=== PATIENT | female | born 1995 | race African-American/Black ===

== ENCOUNTER 2021-08-09 19:39 | Emergency (ER) | payer SELFPAY ==
[2021-08-09 20:41] LABS: Absolute Lymphocytes (CBC) 0.2 K/uL (0.7-4.9); Hematocrit 26.6 % (36.0-45.0); Lymphocytes % 14.2 % (15.3-44.8); MPV 9.6 fL (7.6-11.3); RBC Red Blood Cell Count 3.93 M/uL (3.86-4.86)
[2021-08-09] MEDS ORDERED: FAMOTIDINE 20 MG/2 ML VIAL IV ONE (20:58)
[2021-08-09] MEDS ORDERED: NA CHLORIDE 0.9% 1,000 ML ONE (20:58)
[2021-08-09] MEDS ORDERED: MORPHINE 4 MG/ML SYR ONE ×2 (20:58→23:07)
[2021-08-09] MEDS ORDERED: ONDANSETRON 4 MG/2 ML VIAL ONE (20:58)
[2021-08-09 21:02] LABS: ALT/SGPT 98 U/L (12-78); AST/SGOT 69 U/L (15-37); Albumin 3.4 g/dL (3.4-5.0); Alkaline Phosphatase 320 U/L (45-117); BUN Blood Urea Nitrogen 11 mg/dL (7-18); Bicarbonate 26 mmol/L (21-32); Bilirubin Direct 0.4 mg/dL (0-0.2); Bilirubin Total 0.7 mg/dL (0.2-1.0); Glucose Level 114 mg/dL (74-106); Lipase 220 U/L (73-393); Potassium 3.8 mmol/L (3.5-5.1); Sodium Level 142 mmol/L (136-145)
[2021-08-09 21:33] LABS: Anisocytosis 1+; Blood Morphology Comment NOTED (NOT SEEN); Hypochromasia 1+; Platelet Estimate DECR; Platelets, Giant PRESENT
--- NOTE | 2021-08-09 21:36 | RAD REPORT ---
EXAM DESCRIPTION: CTAbdomen Pelvis W Contrast - 08/09/2021 9:26 pm CLINICAL HISTORY: Abdominal pain. ABD PAIN COMPARISON: No comparisons TECHNIQUE: Biphasic CT imaging of the abdomen and pelvis was performed with 100 ml non-ionic IV cont rast. All CT scans are performed using dose optimization technique as appropriate and may include automated exposure control or mA/KV adjustment according to patient size. FINDINGS: The lung bases are clear. A moderate liver cirrhosis pattern is seen. Significant splenomegaly is noted. The portal venous syst em is enlarged compatible with portal venous hypertension. The pancreas, adrenal glands and kidneys are within normal limits. No bowel obstruction, free air, free fluid or abscess. Moderate stool is present throughout the colon . The appendix is normal. No evidence of significant lymphadenopathy. No suspicious bony findings. IMPRESSION: Moderate liver cirrhosis, splenomegaly and portal hypertension is noted.
[2021-08-09 23:01] LABS: Urine Blood Negative (Negative); Urine Glucose Negative (Negative); Urine Protein Negative (Negative)
[2021-08-09 23:18] LABS: Urine Bacteria 20-50 /HPF (<20); Urine Mucus 1+ /HPF (NONE SEEN); Urine RBC <5 /HPF (NONE SEEN)
--- NOTE | 2021-08-09 23:19 | EDPHYS ---
Physician Documentation [facility] Name: Brent Escalante Age: 25 yrs Sex: Female : 1995 Arrival Date: 08/09/2021 Time: 19:41 Bed 30 Private MD: ED Physician Michael Smith HPI: 08/09 20:20 This 25 yrs old Black Female presents to ER via Ambulatory with complaints of SEVERE cp ABDOMINAL PAIN, ABDOMINAL AREA HARD, Decreased Appetite. 20:20 The patient presents with abdominal pain that is diffuse, abdominal distention that is cp diffuse. 20:20 Onset: The symptoms/episode began/occurred 3 day(s) ago. The symptoms do not radiate. cp Associated signs and symptoms: Pertinent positives: anorexia, diarrhea, nausea, Pertinent negatives: blood in stools, dysuria, fever, active vomiting. The symptoms are described as constant. Severity of pain: in the emergency department the pain is unchanged despite home interventions. Patient reports history of autoimmune hepatitis and varices. 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 - Social history:: Smoking status: Patient denies any tobacco usage or history of. Patient/guardian denies using alcohol, street drugs. ROS: 20:25 Constitutional: Negative for body aches, chills, fever, poor PO intake. cp 20:25 Eyes: Negative for injury, pain, redness, and discharge. cp 20:25 ENT: Negative for ear pain, sore throat, difficulty swallowing, difficulty handling secretions. 20:25 Cardiovascular: Negative for chest pain, palpitations. 20:25 Respiratory: Negative for cough, shortness of breath, wheezing. 20:25 Abdomen/GI: Positive for abdominal pain, nausea, diarrhea, abdominal distension, anorexia, Negative for black/tarry stool, rectal bleeding. 20:25 Back: Negative for radiated pain. 20:25 : Negative for urinary symptoms. 20:25 Neuro: Negative for altered mental status, headache, weakness. 20:25 All other systems are negative. Exam: 20:30 Constitutional: The patient appears in no acute distress, alert, awake, non-toxic, well cp developed, well nourished, uncomfortable. 20:30 Head/Face: Normocephalic, atraumatic. cp 20:30 Eyes: Periorbital structures: appear normal, Conjunctiva: normal, no exudate, no injection, Sclera: no appreciated abnormality, Lids and lashes: appear normal, bilaterally. 20:30 ENT: External ear(s): are unremarkable, Nose: is normal, Mouth: Lips: moist, Oral mucosa: moist, Posterior pharynx: Airway: no evidence of obstruction, patent. 20:30 Chest/axilla: Inspection: normal, Palpation: is normal, no crepitus, no tenderness. 20:30 Cardiovascular: Rate: normal, Rhythm: regular. 20:30 Respiratory: the patient does not display signs of respiratory distress, Respirations: normal, no use of accessory muscles, no retractions, labored breathing, is not present, Breath sounds: are clear throughout, no decreased breath sounds, no stridor, no wheezing. 20:30 Abdomen/GI: Inspection: distension, that is mild, Bowel sounds: active, all quadrants, Palpation: soft, in all quadrants, severe abdominal tenderness, in all quadrants, voluntary guarding, is elicited in all quadrants. 20:30 Back: CVA tenderness, is absent. 20:30 Neuro: Orientation: to person, place \T\ time. Mentation: is normal. 23:00 : Rectal exam: Rectal tone: normal, Stool: brown, Guaiac testing: results were cp negative for occult blood. Vital Signs: 19:59 BP 142 / 87; Pulse 94; Resp 20; Temp 98.2(O); Pulse Ox 100% on R/A; Weight 56.7 kg (R); sj1 Height 5 ft. 7 in. (170.18 cm); Pain 10/10; 21:00 BP 141 / 89; Pulse 75; Resp 20; Pulse Ox 100% on R/A; ld1 22:42 BP 134 / 79; Pulse 70; Resp 18; Pulse Ox 100% on R/A; ld1 23:00 BP 135 / 80; Pulse 70; Resp 18; Pulse Ox 100% on R/A; ld1 23:50 BP 100 / 69; Pulse 64; Resp 16; Temp 98.6; Pulse Ox 100% ; ld1 19:59 Body Mass Index 19.58 (56.70 kg, 170.18 cm) sj1 MDM: 20:10 Patient medically screened. cp 21:00 Differential diagnosis: diverticulitis, gastritis, pancreatitis, Peptic Ulcer Disease, cp Perf. Duodenal Ulcer, Perf. Gastric Ulcer, Ureterolithiasis, urinary tract infection. 23:21 Data reviewed: vital signs, nurses notes, lab test result(s), radiologic studies, CT cp scan, and as a result, I will discharge patient. 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 Response to treatment: the patient's symptoms have markedly improved after treatment, VSS. Nausea and pain markedly improved. Patient appears non-toxic. Will discharge to home for continued monitoring. 08/09 20:14 Order name: Basic Metabolic Panel; Complete Time: 21:05 cp 08/09 20:14 Order name: CBC with Diff; Complete Time: 21:34 cp 08/09 21:01 Interpretation: Normal except: WBC 1.20; HGB 8.3; HCT 26.6; MCV 67.7; MCH 21.1; MCHC cp 31.1; PLT 26; RDW 20.1; GABE% 74.6; LYM% 14.2; NEUT A 0.9; LYMA 0.2. 08/09 20:14 Order name: Hepatic Function; Complete Time: 21:05 cp 08/09 23:16 Interpretation: Normal except: AST 69; ALT 98; ALK 320; BILID 0.4; GLOB 3.6; A/G 0.9. cp 08/09 20:14 Order name: Lipase; Complete Time: 21:05 cp 08/09 20:15 Order name: Urine Microscopic Only; Complete Time: 23:21 cp 08/09 23:21 Interpretation: Normal except: UBACT 20-50; SQEPI 20-50. cp 08/09 21:32 Order name: Manual Differential; Complete Time: 21:34 EDMS 08/09 20:15 Order name: CT Abd/Pelvis - IV Contrast Only; Complete Time: 21:41 cp 08/09 23:01 Order name: Urine Dipstick-Ancillary; Complete Time: 23:16 EDMS 08/09 23:03 Order name: Urine --Ancillary (enter results); Complete Time: 23:16 tt3 08/09 20:14 Order name: IV Saline Lock; Complete Time: 21:02 cp 08/09 20:14 Order name: Labs collected and sent; Complete Time: 21:02 cp 08/09 20:15 Order name: Urine Dipstick-Ancillary (obtain specimen); Complete Time: 23:09 cp 08/09 20:15 Order name: Urine Test (obtain specimen); Complete Time: 23:09 cp 08/09 23:16 Order name: PO challenge; Complete Time: 23:22 cp Administered Medications: 08/10 00:40 Discontinued: NS 0.9% 1000 ml IV at 1 bolus Per protocol; 1000 mL bolus ld1 08/09 20:37 Drug: morphine 4 mg Route: IVP; Site: left antecubital; ld1 21:45 Follow up: Response: No adverse reaction; Pain is unchanged, physician notified ld1 20:37 Drug: Zofran (Ondansetron) 4 mg Route: IVP; Site: left antecubital; ld1 23:50 Follow up: Response: No adverse reaction ld1 20:37 Drug: Pepcid (famotidine) 20 mg Route: IVP; Site: left antecubital; ld1 23:50 Follow up: Response: No adverse reaction; Pain is decreased ld1 20:37 Drug: NS 0.9% 1000 ml Route: IV; Rate: 1 bolus; Site: left antecubital; ld1 23:50 Follow up: IV Intake: 1000ml ld1 22:40 Drug: morphine 4 mg Route: IVP; Site: left antecubital; ld1 23:50 Follow up: Urine output 400 ml; Response: No adverse reaction; Pain is decreased ld1 Disposition Summary: 08/09/21 23:19 Discharge Ordered Location: Home cp Problem: new cp Symptoms: have improved cp Condition: Stable cp Diagnosis - Abdominal pain, unspecified cp Followup: cp - With: Private Physician - When: 1 - 2 days - Reason: Recheck today's complaints Discharge Instructions: - Discharge Summary Sheet cp - Abdominal Pain, Adult cp Forms: - Medication Reconciliation Form cp - Thank You Letter cp - Antibiotic Education cp - Prescription Opioid Use cp Prescriptions: - Zofran 4 mg Oral Tablet - take 1 tablet by ORAL route every 12 hours As needed; 20 tablet; Refills: 0, cp Product Selection Permitted - dicyclomine 20 mg Oral Tablet - take 1 tablet by ORAL route 4 times per day; 30 tablet; Refills: 0, Product cp Selection Permitted Addendum: 08/15/2021 21:51 Co-signature as Attending Physician, Michael Smith MD I agree with the assessment and r n plan of care. Attestation: The patient's history, exam findings, diagnostics, and a summary of any interventions or procedures was reviewed in detail with Manuel BEEBE. Signatures: Dispatcher [employer] EDMS Michael Smith MD MD rn Jeremie Adames, LOGGING TRACTOR OPERATOR SWAMP-C LOGGING TRACTOR OPERATOR SWAMP-Cla1 Manuel Conklin PA PA cp Dibbern, Lauren, RN RN ld1 Nyla Salvador RN RN sj1
--- NOTE | 2021-08-09 23:19 | ER ---
Nurse's Notes [facility] Name: Brent Escalante Age: 25 yrs Sex: Female : 1995 Arrival Date: 08/09/2021 Time: 19:41 Bed 30 Private MD: Diagnosis: Abdominal pain, unspecified Presentation: 08/09 19:59 Chief complaint: Patient states: Generalized abdominal pain, diarrhea and nausea x 3 sj1 days. Hx of Hep C, Varices. Denies vomiting. Coronavirus screen: Vaccine status: Patient reports being unvaccinated. Ebola Screen: Patient negative for fever greater than or equal to 101.5 degrees Fahrenheit, and additional compatible Ebola Virus Disease symptoms Patient denies exposure to infectious person. Patient denies travel to an Ebola-affected area in the 21 days before illness onset. No symptoms or risks identified at this time. Initial Sepsis Screen: Does the patient meet any 2 criteria? No. Patient's initial sepsis screen is negative. Does the patient have a suspected source of infection? No. Patient's initial sepsis screen is negative. Risk Assessment: Do you want to hurt yourself or someone else? Patient reports no desire to harm self or others. Onset of symptoms was August 06, 2021. 19:59 Method Of Arrival: Ambulatory sj1 19:59 Acuity: PRABHAKAR 2 sj1 Triage Assessment: 20:02 General: Appears uncomfortable, well groomed, Behavior is crying. Pain: Complains of sj1 pain in abdomen. GI: Reports diarrhea, nausea. 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 - Social history:: Smoking status: Patient denies any tobacco usage or history of. Patient/guardian denies using alcohol, street drugs. Screenin:03 Abuse screen: Denies threats or abuse. Denies injuries from another. Nutritional sj1 screening: No deficits noted. Tuberculosis screening: No symptoms or risk factors identified. Fall Risk None identified. Assessment: 21:00 General: Appears uncomfortable, Behavior is cooperative, anxious. Pain: Complains of ld1 pain in abdomen Pain currently is 10 out of 10 on a pain scale. Quality of pain is described as aching, sharp, Pain began 2-3 days ago. c/o bilateral upper quad abd pain x 3 days; reports diarrhea 2 days ago with no stools since; reports h/o esophageal varices; denies any vomiting. 21:00 Neuro: No deficits noted. Level of Consciousness is awake, alert, obeys commands, ld1 Oriented to person, place, time, situation. Cardiovascular: No deficits noted. Rhythm is sinus rhythm. Respiratory: No deficits noted. Airway is patent Breath sounds are clear bilaterally. GI: Abdomen is flat, non-distended, tender luther. upper quads with + BS's x4 quads. Reports upper abdominal pain. : No signs and/or symptoms were reported regarding the genitourinary system. EENT: No deficits noted. No signs and/or symptoms were reported regarding the EENT system. Derm: No deficits noted. Musculoskeletal: No deficits noted. No signs and/or symptoms reported regarding the musculoskeletal system. 23:44 Reassessment: Patient appears in no apparent distress at this time. Patient is alert, ld1 oriented x 3, equal unlabored respirations, skin warm/dry/pink. 23:50 Reassessment: Patient appears in no apparent distress at this time. Reports relief of ld1 abdominal pain at present time; Saline lock d/c'd left AC. Vital Signs: 19:59 BP 142 / 87; Pulse 94; Resp 20; Temp 98.2(O); Pulse Ox 100% on R/A; Weight 56.7 kg (R); sj1 Height 5 ft. 7 in. (170.18 cm); Pain 10/10; 21:00 BP 141 / 89; Pulse 75; Resp 20; Pulse Ox 100% on R/A; ld1 22:42 BP 134 / 79; Pulse 70; Resp 18; Pulse Ox 100% on R/A; ld1 23:00 BP 135 / 80; Pulse 70; Resp 18; Pulse Ox 100% on R/A; ld1 23:50 BP 100 / 69; Pulse 64; Resp 16; Temp 98.6; Pulse Ox 100% ; ld1 19:59 Body Mass Index 19.58 (56.70 kg, 170.18 cm) sj1 ED Course: 19:41 Patient arrived in ED. cf2 20:02 Triage completed. sj1 20:03 Patient has correct armband on for positive identification. sj1 20:03 Arm band placed on left wrist. sj1 20:05 Manuel Conklin PA is PHCP. cp 20:05 Michael Smith MD is Attending Physician. cp 20:36 Gerri Bull, YENI is Primary Nurse. ld1 20:40 Inserted saline lock: 20 gauge in left antecubital area, using aseptic technique. Blood sj1 collected. 21:02 CT Abd/Pelvis - IV Contrast Only Sent. ld1 21:02 Basic Metabolic Panel Sent. ld1 21:02 Hepatic Function Sent. ld1 21:02 Lipase Sent. ld1 21:26 CT Abd/Pelvis - IV Contrast Only In Process Unspecified. 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 ld1 23:45 IV discontinued, intact, bleeding controlled, No redness/swelling at site. ld1 Administered Medications: 08/10 00:40 Discontinued: NS 0.9% 1000 ml IV at 1 bolus Per protocol; 1000 mL bolus ld1 08/09 20:37 Drug: morphine 4 mg Route: IVP; Site: left antecubital; ld1 21:45 Follow up: Response: No adverse reaction; Pain is unchanged, physician notified ld1 20:37 Drug: Zofran (Ondansetron) 4 mg Route: IVP; Site: left antecubital; ld1 23:50 Follow up: Response: No adverse reaction ld1 20:37 Drug: Pepcid (famotidine) 20 mg Route: IVP; Site: left antecubital; ld1 23:50 Follow up: Response: No adverse reaction; Pain is decreased ld1 20:37 Drug: NS 0.9% 1000 ml Route: IV; Rate: 1 bolus; Site: left antecubital; ld1 23:50 Follow up: IV Intake: 1000ml ld1 22:40 Drug: morphine 4 mg Route: IVP; Site: left antecubital; ld1 23:50 Follow up: Urine output 400 ml; Response: No adverse reaction; Pain is decreased ld1 Intake: 23:50 IV: 1000ml; Total: 1000ml. ld1 Output: 23:50 Urine: 400ml; Total: 400ml. ld1 Outcome: 23:19 Discharge ordered by . cp 23:45 Discharged to home ambulatory. ld1 23:45 Condition: stable 23:45 Discharge instructions given to patient, Instructed on discharge instructions, follow up and referral plans. medication usage, Demonstrated understanding of instructions, follow-up care, medications, Prescriptions given X 2. 08/10 00:41 Patient left the ED. ld1 Signatures: Dispatcher [employer] EDMS Manuel Conklin PA PA cp Frazier, Celesta cf2 Gerri Bull RN RN ld1 Nyla Salvador RN RN sj1
[2021-08-10 01:03] VITALS: O2SAT 100
[2021-08-10 01:05] VITALS: BP 100/69; TEMP 98.6
== END 2021-08-10 00:41 | disposition home or self-care (01) ==
LOC: ER 19:39
DX: R10.9 Unspecified abdominal pain (principal); Z91.048 Other nonmedicinal substance allergy status
CPT/HCPCS: 36415; 74177; 80048; 80076; 81003; 81015; 81025; 83690; 85025; 96374; 96375; 99284; J2405; J7030; Q9967

== ENCOUNTER 2021-08-12 08:26 | Emergency (ER) | payer OTHER, SELFPAY ==
[2021-08-12 10:09] LABS: Absolute Lymphocytes (CBC) 0.2 K/uL (0.7-4.9); Hematocrit 28.1 % (36.0-45.0); MPV 8.5 fL (7.6-11.3); RBC Red Blood Cell Count 4.16 M/uL (3.86-4.86)
[2021-08-12] MEDS ORDERED: ONDANSETRON 4 MG/2 ML VIAL ONE (10:09)
[2021-08-12] MEDS ORDERED: NA CHLORIDE 0.9% 1,000 ML ONE (10:10)
[2021-08-12 10:26] LABS: ALT/SGPT 96 U/L (12-78); AST/SGOT 67 U/L (15-37); Albumin 3.6 g/dL (3.4-5.0); Alkaline Phosphatase 309 U/L (45-117); BUN Blood Urea Nitrogen 9 mg/dL (7-18); Bicarbonate 22 mmol/L (21-32); Bilirubin Direct 0.3 mg/dL (0-0.2); Bilirubin Total 0.6 mg/dL (0.2-1.0); Glucose Level 102 mg/dL (74-106); Lipase 129 U/L (73-393); Potassium 4.2 mmol/L (3.5-5.1); Protein, Total 7.2 g/dL (6.4-8.2); Sodium Level 139 mmol/L (136-145)
[2021-08-12 11:02] LABS: Platelet Estimate DECR
[2021-08-12 11:03] LABS: Anisocytosis 1+; Blood Morphology Comment NOTED (NOT SEEN); Hypochromasia 1+; Platelets, Giant PRESENT
[2021-08-12] MEDS ORDERED: MORPHINE 4 MG/ML SYR ONE (11:24)
--- NOTE | 2021-08-12 11:26 | RAD REPORT ---
EXAM DESCRIPTION: CT - Abdomen Pelvis W Contrast - 08/12/2021 11:13 am CLINICAL HISTORY: Abdominal pain COMPARISON: August 09, 2021 TECHNIQUE: Computed axial tomography of the abdomen pelvis was obtained. 100 cc Isovue-300 was admin istered intravenously. Oral contrast was not requested which limits evaluation of bowel. All CT scans are performed using dose optimization technique as appropriate and may include automated exposure control or mA/KV adjustment according to patient size. FINDINGS: Cirrhotic liver with fibrosis and capsular retraction. Portal vein is distended but patent . Abdominal varices are present. Spleen measures 19 centimeters. Several tiny bilateral renal calculi. No hydronephrosis. Pancreas and adrenals unremarkable There is no evidence of diverticulitis. A 2 centimeter irregularly-shaped right ovarian cyst without significant free fluid Moderate amount of stool within the colon IMPRESSION: Cirrhosis and moderate splenomegaly A 2 centimeter irregularly-shaped right ovarian cyst without significant free fluid
[2021-08-12 11:49] LABS: Urine Blood Negative (Negative); Urine Glucose Negative (Negative); Urine Protein Negative (Negative)
--- NOTE | 2021-08-12 12:36 | ER ---
Nurse's Notes [facility] Name: Brent Escalante Age: 25 yrs Sex: Female : 1995 Arrival Date: 08/12/2021 Time: 08:26 Bed 18 Private MD: Diagnosis: Upper abdominal pain, unspecified;Vomiting;Anemia, unspecified;Pancytopenia Presentation: 08/12 08:55 Chief complaint: Patient states: Upper abdominal x 1 week, seen 2 days ago here and jl7 it's not better. Pt reports unknown last bowel movement but it's been at least 5 days, maybe more. Pt reports passing gas, reports nausea. Coronavirus screen: At this time, the client does not indicate any symptoms associated with coronavirus-19. Ebola Screen: No symptoms or risks identified at this time. Initial Sepsis Screen: Does the patient meet any 2 criteria? No. Patient's initial sepsis screen is negative. Does the patient have a suspected source of infection? No. Patient's initial sepsis screen is negative. Risk Assessment: Do you want to hurt yourself or someone else? Patient reports no desire to harm self or others. Onset of symptoms was August 05, 2021. 08:55 Method Of Arrival: Ambulatory jl7 08:55 Acuity: PRABHAKAR 3 jl7 Triage Assessment: 08:57 General: Appears in no apparent distress. uncomfortable, Behavior is calm, cooperative, jl7 appropriate for age. Pain: Complains of pain in right upper quadrant and left upper quadrant Pain currently is 8 out of 10 on a pain scale. GI: Reports upper abdominal pain, constipation. 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 - Social history:: Smoking status: Patient denies any tobacco usage or history of. Screenin:00 Abuse screen: Denies threats or abuse. Denies injuries from another. Nutritional bp screening: No deficits noted. Tuberculosis screening: No symptoms or risk factors identified. Fall Risk None identified. Assessment: 09:00 General: SEE TRIAGE NOTE. bp 11:00 Reassessment: No changes from previously documented assessment. Patient and/or family bp updated on plan of care and expected duration. Pain level reassessed. 13:00 Reassessment: No changes from previously documented assessment. Patient and/or family bp updated on plan of care and expected duration. Pain level reassessed. TRANSFER IN PROCESS FOR GI F/U. 14:00 Reassessment: REPORT TO JAZMÍN JAIME FOR [facility] RM 2442. bp 14:30 Reassessment: EMS AT B/S FOR TRANSPORT. bp Vital Signs: 08:55 BP 128 / 88; Pulse 79; Resp 17; Temp 98.5; Pulse Ox 100% ; Weight 56.7 kg; Height 5 ft. jl7 7 in. (170.18 cm); Pain 8/10; 12:00 BP 105 / 80; Pulse 60; Resp 17; Pulse Ox 100% ; bp 14:00 BP 101 / 88; Pulse 61; Resp 17; Pulse Ox 100% ; bp 08:55 Body Mass Index 19.58 (56.70 kg, 170.18 cm) jl7 ED Course: 08:26 Patient arrived in ED. am2 08:57 Triage completed. jl7 08:57 Arm band placed on right wrist. jl7 09:00 Patient has correct armband on for positive identification. Bed in low position. Call bp light in reach. Side rails up X2. 09:03 Jono Murrell, YENI is Primary Nurse. bp 09:05 Tre Hung PA is PHCP. jm 09:05 Julian Sheets MD is Attending Physician. jm 10:04 Initial lab(s) drawn, by ks, sent to lab. Inserted saline lock: 20 gauge in left jl7 antecubital area, using aseptic technique. Blood collected. 10:46 initiated a transfer with Marsha Hearn Rn from the [facility]. eb 11:13 CT Abd/Pelvis - IV Contrast Only In Process Unspecified. EDMS 11:42 connected the boilermaker assembly and erection rehabilitation therapy technician for [facility] with Tre Craft for patient transfer eb consultation. 12:24 administrative approval given by Marsha Hearn/ patient has been accepted to [facility] rm 2442/ Dr. Merchant has accepted the patient in transfer/ report to be called to [phone]. 14:01 No provider procedures requiring assistance completed. Patient transferred, IV remains bp in place. Administered Medications: 10:08 Drug: NS 0.9% 1000 ml Route: IV; Rate: 1 bolus; Site: left antecubital; tc5 14:07 Follow up: IV Status: Completed infusion; IV Intake: 1000ml bp 10:08 Drug: Zofran (Ondansetron) 4 mg Route: IVP; Site: left antecubital; tc5 11:08 Follow up: Response: No adverse reaction bp 11:00 Drug: morphine 4 mg Route: IVP; Site: left antecubital; bp 12:16 Follow up: Response: Pain is decreased bp Intake: 14:07 IV: 1000ml; Total: 1000ml. bp Outcome: 12:36 ER care complete, transfer ordered by MD. frost 14:01 Transferred by ground EMS to [facility]. bp 14:01 Condition: stable 14:01 Instructed on the need for transfer. 14:31 Patient left the ED. bp Signatures: Dispatcher [employer] EDMS Tre Hung PA PA jmm Leal, Jahala RN RN jl7 Talia Kimbrough Brian, RN RN Marsha Kelly Theresa, RN RN tc5
--- NOTE | 2021-08-12 12:37 | EDPHYS ---
Physician Documentation [facility] Name: Brent Escalante Age: 25 yrs Sex: Female : 1995 Arrival Date: 08/12/2021 Time: 08:26 Bed 18 Private MD: ED Physician Julian Sheets HPI: 08/12 09:00 This 25 yrs old Black Female presents to ER via Ambulatory with complaints of Abdominal jmm Pain. 09:00 The patient presents with abdominal pain. Onset: The symptoms/episode began/occurred jmm gradually, 3 day(s) ago. The symptoms do not radiate. Associated signs and symptoms: Pertinent positives: nausea and vomiting, constipation. The symptoms are described as achy. Modifying factors: The symptoms are alleviated by nothing, the symptoms are aggravated by nothing. Is a 25-year-old female with history of autoimmune hepatitis presents emerged part with complaints of epigastric abdominal pain beginning approximately 3 days ago. Patient was seen in the ED 2 days ago with similar symptoms. Patient states that the pain has progressively worsened. Patient states having multiple episodes of vomiting. Denies blood or dark tarry stools. 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 - Social history:: Smoking status: Patient denies any tobacco usage or history of. ROS: 09:00 Constitutional: Negative for fever, chills, and weight loss, Cardiovascular: Negative jmm for chest pain, palpitations, and edema, Respiratory: Negative for shortness of breath, cough, wheezing, and pleuritic chest pain. 09:00 Abdomen/GI: Positive for abdominal pain. 09:00 All other systems are negative. Exam: 09:00 Constitutional: This is a well developed, well nourished patient who is awake, alert, jmm and in no acute distress. Head/Face: atraumatic. Eyes: EOMI, no conjunctival erythema appreciated ENT: Moist Mucus Membranes Neck: Trachea midline, Supple Chest/axilla: Normal chest wall appearance and motion. Cardiovascular: Regular rate and rhythm. No edema appreciated Respiratory: Normal respirations, no respiratory distress appreciated 09:00 Back: Normal ROM Skin: General appearance color normal 09:00 Abdomen/GI: Inspection: abdomen appears normal, Bowel sounds: normal, Palpation: soft, moderate abdominal tenderness, in the right upper quadrant and left upper quadrant. 09:00 Musculoskeletal/extremity: ROM: intact in all extremities. 09:00 Skin: Appearance: Color: normal in color. 09:00 Neuro: Orientation: is normal, Mentation: is normal, Memory: is normal. 09:00 Psych: Behavior/mood is pleasant, cooperative. Vital Signs: 08:55 BP 128 / 88; Pulse 79; Resp 17; Temp 98.5; Pulse Ox 100% ; Weight 56.7 kg; Height 5 ft. jl7 7 in. (170.18 cm); Pain 8/10; 12:00 BP 105 / 80; Pulse 60; Resp 17; Pulse Ox 100% ; bp 14:00 BP 101 / 88; Pulse 61; Resp 17; Pulse Ox 100% ; bp 08:55 Body Mass Index 19.58 (56.70 kg, 170.18 cm) [facility] MDM: 09:17 Patient medically screened. [facility] 12:32 Data reviewed: vital signs, nurses notes. Counseling: I had a detailed discussion with [facility] the patient and/or guardian regarding: the historical points, exam findings, and any diagnostic results supporting the discharge/admit diagnosis, lab results, radiology results, the need to transfer to another facility. ED course: I discussed the patient with Dr. Curiel and Dr. Ron whom accepted the patient for transfer. . 08/12 09:06 Order name: Basic Metabolic Panel; Complete Time: 10:26 [facility] 08/12 09:06 Order name: CBC with Diff; Complete Time: 11:05 [facility] 08/12 09:06 Order name: Hepatic Function; Complete Time: 10:26 [facility] 08/12 09:06 Order name: Lipase; Complete Time: 10:26 [facility] 08/12 11:02 Order name: Manual Differential; Complete Time: 11:05 [facility] 08/12 10:52 Order name: CT Abd/Pelvis - IV Contrast Only; Complete Time: 11:27 [facility] 08/12 11:43 Order name: SARS-COV-2 RT PCR; Complete Time: 12:36 EDMT 08/12 11:48 Order name: Urine Dipstick-Ancillary; Complete Time: 11:50 [facility] 08/12 11:52 Order name: Urine --Ancillary (enter results); Complete Time: 12:04 eb 08/12 09:06 Order name: IV Saline Lock; Complete Time: 10:04 [facility] 08/12 09:06 Order name: Labs collected and sent; Complete Time: 10:04 [facility] 08/12 10:07 Order name: Urine Dipstick-Ancillary (obtain specimen); Complete Time: 11:50 [facility] 08/12 10:07 Order name: Urine Test (obtain specimen); Complete Time: 11:50 [facility] Administered Medications: 10:08 Drug: NS 0.9% 1000 ml Route: IV; Rate: 1 bolus; Site: left antecubital; tc5 14:07 Follow up: IV Status: Completed infusion; IV Intake: 1000ml bp 10:08 Drug: Zofran (Ondansetron) 4 mg Route: IVP; Site: left antecubital; tc5 11:08 Follow up: Response: No adverse reaction bp 11:00 Drug: morphine 4 mg Route: IVP; Site: left antecubital; bp 12:16 Follow up: Response: Pain is decreased bp Disposition: 16:28 Co-signature as Attending Physician, Julian Sheets MD I agree with the assessment and kdr plan of care. Disposition Summary: 08/12/21 12:36 Transfer Ordered Transfer Location: [facility] Reason: Higher level of care jmm Condition: Stable jmm Problem: an acute exacerbation jmm Symptoms: are unchanged jmm Accepting Physician: Dr. Ron(08/12/21 14:31) bp Diagnosis - Upper abdominal pain, unspecified jmm - Vomiting jmm - Anemia, unspecified jmm - Pancytopenia jmm Forms: - Medication Reconciliation Form jmm - SBAR form jmm Signatures: Dispatcher [employer] EDJulian Kaiser MD MD kdr Mickail, Joel, PA PA jmm Leal, Jahala RN RN jl7 Jono Murrell RN RN bp Tierra Sanchez, RN RN tc5 Corrections: (The following items were deleted from the chart) 11:44 10:45 CORONAVIRUS+MR.LAB.BRZ ordered. EDMS EDMS 14:31 12:36 Dr. Ron [facility]
[2021-08-12 14:54] VITALS: TEMP 98.5; O2SAT 100
[2021-08-12 14:57] VITALS: BP 101/88
== END 2021-08-12 14:31 | disposition short-term general hospital (02) ==
LOC: ER 08:26
DX: D64.9 Anemia, unspecified (principal); D61.818 Other pancytopenia; R10.10 Upper abdominal pain, unspecified; K75.4 Autoimmune hepatitis; Z20.822 Contact with and (suspected) exposure to COVID-19; Z88.8 Allergy status to other drugs, medicaments and biological substances; Z91.048 Other nonmedicinal substance allergy status
CPT/HCPCS: 85025; 80048; 36415; 81025; 80076; 81003; 83690; 74177; 96375; 96374; 99285; U0003; Q9967; J7030; J2405